=== PATIENT | male | born 2000 | race Caucasian/White ===

== ENCOUNTER 2020-04-30 13:13 | Emergency (ER) | payer SELFPAY ==
[2020-04-30 13:39] VITALS: BP 127/82
[2020-04-30] MEDS ORDERED: TETRACAINE HCL 0.5% OPH SOLN 4 ML OS ONE (14:46)
[2020-04-30] MEDS ORDERED: ERYTHROMYCIN 0.5% OPH OINTMENT 3.5 GM TUBE OS ONE (15:07)
[2020-04-30] MEDS ORDERED: HYDROCODONE/ACETAMINOPHEN 5-325 MG TABLET PO ONE (15:07)
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
== END 2020-04-30 15:20 | disposition home or self-care (01) ==
LOC: ER 13:13
DX: S05.02XA Injury of conjunctiva and corneal abrasion without foreign body, left eye, initial encounter (principal); W50.0XXA Accidental hit or strike by another person, initial encounter; F17.200 Nicotine dependence, unspecified, uncomplicated; F12.10 Cannabis abuse, uncomplicated
CPT/HCPCS: 99283; J3490 ×2